=== PATIENT | female | born 2000 | race Caucasian/White ===

== ENCOUNTER 2020-12-20 13:14 | Emergency (ER) | payer BC ==
[~2020-12-20] VITALS: Ht 172.7 cm; Wt 72.7 kg
[~2020-12-20 13:14] MED LIST: DOXYCYCLINE 10100 MG PO; EPIPEN 2-PAK1 MG/ML IM; [UNRECOGNIZED DRUG - OTHER] PO
[2020-12-20 13:19] VITALS: TEMP 98.4
[2020-12-20 14:15] VITALS: BP 123/81; PULSE 90
== END 2020-12-20 14:20 | disposition home or self-care (01) ==
LOC: COL.ER 13:14
DX: Z91.010 Allergy to peanuts (principal)